=== PATIENT | male | born 1980 | race Caucasian/White ===

== ENCOUNTER 2017-10-15 04:55 | Emergency (ER) | payer SELFPAY ==
[~2017-10-15] VITALS: Ht 182.9 cm; Wt 95.3 kg
[2017-10-15 04:55] VITALS: BP_SYST 132
[2017-10-15] MEDS ORDERED: NACL 0.9% 1,000 ML IV ONE (05:15)
[2017-10-15] MEDS ORDERED: ONDANSETRON HCL 4 MG/2 ML VIAL IVP ONE (05:15)
[2017-10-15 06:16] VITALS: BP_SYST 130
== END 2017-10-15 06:16 | disposition home or self-care (01) ==
LOC: SED 04:55
DX: T62.0X1A Toxic effect of ingested mushrooms, accidental (unintentional), initial encounter (principal); R11.0 Nausea; Y92.89 Other specified places as the place of occurrence of the external cause
CPT/HCPCS: 96374; 99284; J2405; J7030